=== PATIENT | female | born 1935 | race African-American/Black ===

== ENCOUNTER 2020-03-30 12:18 | Emergency (ER) | payer OTHER, MEDICAID ==
[~2020-03-30] VITALS: Ht 162.6 cm; Wt 55.0 kg
[2020-03-30] MEDS ORDERED: LABETALOL 5MG/ML SYR 20 MG/4 ML SYRINGE IV ONE (13:00)
[2020-03-30] MEDS ORDERED: NICARDIPINE 40MG/200ML PREMIX 200 ML IV STA ×2 (13:04→21:42)
[2020-03-30 13:35] LABS: BASOPHILS % 0.4 % (0.0-2.0); EOSINOPHILS % 0.2 % (0.0-5.0); HEMATOCRIT. 29.9 % (36.0-48.0); LYMPHOCYTES % 16.8 % (20.0-50.0); MEAN CORPUSCULAR HEMOGLOBIN 28.4 pg (28.0-32.0); MEAN CORPUSCULAR VOLUME 84.8 fL (81.0-99.0); MEAN PLATELET VOLUME 8.1 fl (7.4-10.4); MONOCYTES % 7.1 % (2.0-8.0); NEUTROPHILS % 75.5 % (40.0-76.0); PLATELET 147 x1000/uL (130-400); RED BLOOD CELL COUNT 3.53 mill/uL (4.2-5.4); RED CELL DISTRIBUTION WIDTH 14.7 % (11.6-14.6)
[2020-03-30 13:42] LABS: CHLORIDE 109 mEq/L (98-107)
[2020-03-30] MEDS ORDERED: POTASSIUM CHLORIDE 20MEQ TABLET SR PO ONE (15:00)
[2020-03-30] MEDS ORDERED: IOHEXOL-350 100 ML BOTTLE ONE (15:01)
[2020-03-30] MEDS ORDERED: LABETALOL 5MG/ML SYR 20 MG/4 ML SYRINGE IV SCH (15:45)
[2020-03-30] MEDS ORDERED: ONDANSETRON HCL 4MG/2ML INJ IV ONE (18:45)
[2020-03-30 21:51] VITALS: BP 124/66
== END 2020-03-30 22:12 | disposition short-term general hospital (02) ==
LOC: ER 12:18 → EDBEDREQSVC 14:17 → EDBEDREQ 14:17 → EDBEDREQTM 14:17 → CANBEDREQ 17:29 → ER 22:12
DX: R07.89 Other chest pain (principal)
CPT/HCPCS: 36415; 71045; 71275; 74174; 76775; 76937; 80053; 83690; 83880; 84484; 85025; 86850; 86900; 86901; 93005; 96374; 96375; 96376; 99285; C1725; J2405; J3490; Q9967

== ENCOUNTER 2021-02-04 17:59 | Emergency (ER) | payer OTHER, MEDICAID ==
[~2021-02-04] VITALS: Ht 167.6 cm; Wt 68.0 kg
[2021-02-04 20:10] LABS: BASOPHILS % 0.3 % (0.0-2.0); EOSINOPHILS % 0.4 % (0.0-5.0); HEMATOCRIT. 24.1 % (36.0-48.0); HEMOGLOBIN. 7.6 g/dL (12.0-16.0); LYMPHOCYTES % 9.8 % (20.0-50.0); MEAN CORPUSCULAR HEMOGLOBIN 26.7 pg (28.0-32.0); MEAN PLATELET VOLUME 8.3 fl (7.4-10.4); MONOCYTES % 8.1 % (2.0-8.0); NEUTROPHILS % 81.4 % (40.0-76.0); PLATELET 131 x1000/uL (130-400); RED BLOOD CELL COUNT 2.86 mill/uL (4.2-5.4); RED CELL DISTRIBUTION WIDTH 15.3 % (11.6-14.6)
[2021-02-04 20:20] LABS: CHLORIDE 106 mEq/L (98-107)
[2021-02-04] MEDS ORDERED: HYDRALAZINE 20MG/ML VIAL IV ONE ×2 (20:45→21:45)
[2021-02-04 22:35] LABS: INR 1.3; PROTHROMBIN TIME 13.6 sec (9.6-11.0)
[2021-02-04] MEDS ORDERED: IOHEXOL-350 100 ML BOTTLE ONE (23:33)
[2021-02-05] MEDS ORDERED: NICARDIPINE 40MG/200ML PREMIX 200 ML IV PRN (00:15)
[2021-02-05 04:28] VITALS: BP 139/80
[2021-02-05] MEDS ORDERED: ONDANSETRON HCL 4MG/2ML INJ IV ONE (05:00)
== END 2021-02-05 04:50 | disposition short-term general hospital (02) ==
LOC: ER 17:59 → EDBEDREQTM 22:00 → EDBEDREQ 22:00 → CANBEDREQ 02-05 00:10 → ER 02-05 04:50
DX: I11.9 Hypertensive heart disease without heart failure (principal); R41.82 Altered mental status, unspecified; R11.10 Vomiting, unspecified; Z86.73 Personal history of transient ischemic attack (TIA), and cerebral infarction without residual deficits; Z86.79 Personal history of other diseases of the circulatory system; J44.9 Chronic obstructive pulmonary disease, unspecified
CPT/HCPCS: 36415; 70450; 70496; 71045; 80053; 83880; 84484; 85025; 85610; 93005; 96374; 96375; 99285; J0360; J2405; Q9967

== ENCOUNTER 2021-03-04 15:16 | Emergency (ER) | payer OTHER, MEDICAID ==
[~2021-03-04] VITALS: Ht 165.1 cm; Wt 50.0 kg
[2021-03-04 16:20] LABS: BASOPHILS % 0.2 % (0.0-2.0); EOSINOPHILS % 0.3 % (0.0-5.0); HEMATOCRIT. 23.9 % (36.0-48.0); HEMOGLOBIN. 7.4 g/dL (12.0-16.0); LYMPHOCYTES % 12.8 % (20.0-50.0); MEAN CORPUSCULAR HEMOGLOBIN 26.7 pg (28.0-32.0); MEAN CORPUSCULAR VOLUME 86.7 fL (81.0-99.0); MEAN PLATELET VOLUME 8.8 fl (7.4-10.4); NEUTROPHILS % 78.7 % (40.0-76.0); PLATELET 108 x1000/uL (130-400); RED BLOOD CELL COUNT 2.75 mill/uL (4.2-5.4); RED CELL DISTRIBUTION WIDTH 16.4 % (11.6-14.6)
[2021-03-04 16:21] LABS: CHLORIDE 110 mEq/L (98-107)
[2021-03-04 16:25] LABS: INR 1.7; PROTHROMBIN TIME 17.6 sec (9.6-11.0)
[2021-03-04 20:57] LABS: CLARITY URINE TURBID (CLEAR); COLOR URINE YELLOW (YELLOW); KETONES URINE NEGATIVE (NEGATIVE); LEUKOCYTE ESTERASE URINE 3+ (NEGATIVE); NITRITE URINE NEGATIVE (NEGATIVE); OCCULT BLOOD URINE 3+ (NEGATIVE); PROTEIN URINE 2+ (NEGATIVE); SPECIFIC GRAVITY URINE 1.012 (1.005-1.030); UROBILINOGEN URINE 0.2 E.U./dL (0.2-1.0)
[2021-03-04 21:33] VITALS: BP 147/86
[2021-03-04] MEDS ORDERED: CEFTRIAXONE 1 G PREMIX 50 ML IV ONE (21:45)
== END 2021-03-04 22:21 | disposition admitted as inpatient to this hospital (09) ==
LOC: ER 15:16 → CANBEDREQ 22:33
DX: R53.1 Weakness (principal); N39.0 Urinary tract infection, site not specified; D64.9 Anemia, unspecified; J44.9 Chronic obstructive pulmonary disease, unspecified; F03.90 Unspecified dementia, unspecified severity, without behavioral disturbance, psychotic disturbance, mood disturbance, and anxiety; I10 Essential (primary) hypertension; Z86.73 Personal history of transient ischemic attack (TIA), and cerebral infarction without residual deficits
CPT/HCPCS: 36415; 71045; 80053; 81003; 82962; 83605; 83880; 84145; 84484; 85025; 87077; 87186; 93005; 99285